=== PATIENT | female | born 1970 | race Caucasian/White ===

== ENCOUNTER → 2017-07-16 16:30 | Outpatient (REF) | payer OTHER, SELFPAY ==
[2017-07-16 19:48] LABS: Amphetamine/Metha Screen,Urine Negative ng/mL (<1000); Barbiturates Screen,Urine Negative ng/mL (<200); Benzodiazepines Screen,Urine Negative ng/mL (200); Cannabinoid Screen,Urine Positive ng/mL (<50); Cocaine Screen,Urine Negative ng/g (<300); Methadone Screen,Urine Negative ng/mL (<300); Opiate Screen,Urine Negative ng/mL (<300); Phencyclidine Screen,Urine Negative ng/mL (<25)
[2017-07-30 13:36] LABS: Opiates Negative (Cutoff=100)
== END ==
LOC: LAB 16:30
PROVIDERS: Visit Provider Nurse Practitioner Family
DX: Z79.899 Other long term (current) drug therapy (principal)
CPT/HCPCS: 80305; 80361; G0480

== ENCOUNTER → 2017-07-19 12:39 | Outpatient (CLI) | payer OTHER, SELFPAY ==
[2017-07-19 13:31] LABS: Basophils % 0.4 % (0.1-2.0); Eosinophils # 0.1 K/mm3 (0.0-0.4); Hematocrit 49.4 % (37.0-47.0); Hemoglobin 16.6 g/dL (12.2-16.2); Lymphocytes # 2.9 K/mm3 (0.7-4.5); Lymphocytes % 37.2 K/mm3 (10-50); Mean Corpuscular HGB Conc 33.6 g/dL (31.8-35.4); Mean Corpuscular Hemoglobin 28.9 pg (27.0-31.2); Mean Corpuscular Volume 86.2 fl (81-99); Mean Platelet Volume 8.4 fl (7.4-10.4); Monocytes # 0.5 K/mm3 (0.1-1.0); Monocytes % 5.8 % (1.7-9.3); Neutrophils # 4.3 K/mm3 (1.8-7.8); Neutrophils % 55.5 % (37.0-80.0); Platelet Count 331 K/mm3 (142-424); Red Blood Count 5.73 M/mm3 (4.20-5.40); Red Cell Distribution Width 13.1 % (11.5-17.5); White Blood Count 7.7 K/mm3 (4.8-10.8)
[2017-07-19 14:11] LABS: Alanine Aminotransferase 19 U/L (12-78); Albumin Level 4.2 gm/dL (3.4-5.0); Albumin/Globulin Ratio 1.3 (1.1-1.8); Alkaline Phosphatase 62 U/L (46-116); Anion Gap 14.2 mEq/L (5-15); Aspartate Amino Transferase 13 U/L (15-37); Bilirubin,Total 0.5 mg/dL (0.2-1.0); Blood Urea Nitrogen 6 mg/dL (7-18); Calcium 9.5 mg/dL (8.5-10.1); Carbon Dioxide 27 mmol/L (21.0-32.0); Chloride 100 mmol/L (98-107); Cholesterol 316 mg/dL (140-200); Creatinine,Serum 0.77 mg/dL (0.55-1.02); Estimated Glomerular Filt Rate 80 ml/min (>60); Free T4 (Free Thyroxine) 1.12 ng/dl (0.76-1.46); GFR (African American) 97 ML/MIN (>60); Globulin 3.2 gm/dl (1.3-3.2); Glucose 80 mg/dL (74-106); HDL Cholesterol 45 mg/dL (29-89); LDL Cholesterol 221 mg/dL (0-130); Potassium 4.2 mmoL/L (3.5-5.1); Sodium 137 mmol/L (136-145); Thyroid Stimulating Hormone 0.99 uIU/ml (0.358-3.740); Total Protein,Serum 7.4 gm/dL (6.4-8.2); Triglycerides 249 mg/dL (30-200); VLDL Cholesterol 50 mg/dL (0-40)
[2017-07-19 14:20] LABS: Hemoglobin A1C 5.6 % (0.0-7.0)
[2017-07-20 09:13] LABS: Vitamin D 25 Hydroxy 21.1 ng/mL (30.0-100.0)
== END ==
PROVIDERS: Nurse Practitioner Family; PCP Emergency Medicine; Visit Provider Emergency Medicine
DX: E03.9 Hypothyroidism, unspecified (principal); F32.9 Major depressive disorder, single episode, unspecified; G43.109 Migraine with aura, not intractable, without status migrainosus
CPT/HCPCS: 36415; 80053; 80061; 82652; 83036; 84439; 84443; 85025

== ENCOUNTER 2017-09-06 15:57 | Emergency (ER) | payer SELFPAY ==
[2017-09-06 15:58] VITALS: BP 127/79; PULSE 78; RESP 20; TEMP 36.6; O2SAT 99; BMI 26.3
--- NOTE | 2017-09-06 16:12 | XR_ITS ---
XR hand LT 2V HISTORY: Posttraumatic pain with bruising and swelling ITS.REASON: wind caught door smashing between door and house ORDERING PHYSICIAN: Miguel Angel Puente MD PATIENT AGE: 46 years COMPARISON: None FINDINGS: No fracture or dislocation. No lytic or blastic change. There is normal mineralization.. The joint spaces are well-preserved. No significant degenerative/arthritic changes. No erosive changes evident.. IMPRESSION: Negative, no acute finding
--- NOTE | 2017-09-06 16:21 | HMH.EDGENADL ---
ED Disposition Clinical Impression: Contusion of hand, left Qualifiers: Encounter type: initial encounter Qualified Code(s): S60.222A - Contusion of left hand, initial encounter Disposition: Home, Self-Care Condition on Discharge: Fair Instructions: DI for Acute Pain -- Adult Prescriptions: Ibuprofen [Ibuprofen 600mg Tab] 600 mg PO Q8H 30 Days #90 tab Referrals: Gonzalo Main MD [Primary Care Provider] - Time of Disposition: 17:06 - Critical Care Critical Care Time: No Attestation: On 09/06/17, the high probability of a clinically significant, sudden or life threatening deterioration of the following system(s) required my full and direct attention, intervention and personal management. The time I documented below is in addition to time spent performing reported procedures but includes the following listed in this critical care notation. Medical Decision Making Vital Signs: 09/06/17 15:58 Temperature 97.8 F Temperature Source Oral Pulse Rate [Right Radial] 78 Respiratory Rate 20 Blood Pressure [Right Arm] 127/79 Blood Pressure Mean [Right Arm] 95 Blood Pressure Source [Right Arm] Automatic Cuff Blood Pressure Position [Right Arm] Sitting 02 Sat by Pulse Oximetry 99 Oxygen Delivery Method Room Air - Radiology Data #1 Image(s): Hand Image Reviewed: Yes I reviewed the patient's radiology results, Yes I reviewed the patient's radiology image, Yes I discussed the image results w/the radiologist, Yes I have reviewed radiologist's interpretation Preliminary Findings: Normal/NAD - Pilo Inquiry Pt receiving controlled substance: No Pilo was queried for this patient: No General Adult HPI - General Chief complaint: PAIN Stated complaint: [id number] injured left hand Time Seen by Provider: 09/06/17 16:22 Mode of Arrival: Ambulatory Limitations: No Limitations Description of Symptoms (Recalled from ER Triage Doc. by RN): wind cought her back door x2 days ago, smashing it between the dooe and house , hematoma with bruising to top of hand - History of Present Illness HPI narrative: pt opened back door to house 2 days ago and the wind caught it and slammed her left hand between the door and the house and now comes to the ED with a large bruise and hematoma on the dorsum of the left hand. - Related Data Home Medications Medication Instructions Recorded Confirmed epinephrine HCl (PF) 1 mg/mL (1 0.5 ml SUBMUCOSAL ONCE PRN 07/16/17 mL) injection solution lurasidone 40 mg tablet 40 mg PO QDAY 07/16/17 [id number]-Vu-igjo-minerals 27 tab PO .once a day each 07/16/17 mg-0.4 mg tablet sumatriptan 50 mg tablet 50 mg PO ONCE PRN 07/16/17 tramadol 50 mg tablet 50 mg PO Q8H tab 07/16/17 trazodone ER 150 mg mg PO .once hs tab 07/16/17 tablet,extended release 24 hr venlafaxine ER 150 mg 150 mg PO ONCE 07/16/17 tablet,extended release 24 hr Previous Rx's Medication Instructions Recorded albuterol sulfate HFA 90 2 puff INHALATION Q6H #6.7 g 07/24/17 mcg/actuation aerosol inhaler montelukast 10 mg tablet 10 mg PO QHS #30 tab 07/24/17 oxybutynin chloride 5 mg tablet 5 mg PO ONCE #30 tab 07/24/17 atorvastatin 10 mg tablet 10 mg PO QDAY #30 tab 08/01/17 ergocalciferol (vitamin D2) 50,000 50,000 unit PO QWEEK #4 cap 08/01/17 unit capsule levothyroxine 100 mcg capsule 100 mcg PO QDAY #30 cap 08/01/17 meloxicam 7.5 mg tablet 7.5 mg PO QDAY #30 tab 08/01/17 tizanidine 4 mg tablet 4 mg PO Q8H #90 tab 08/01/17 Ibuprofen [Ibuprofen 600mg Tab] 600 mg PO Q8H 30 Days #90 tab 09/06/17 Allergies Allergy/AdvReac Type Severity Reaction Status Date / Time codeine Allergy Intermediate Verified 07/16/17 14:26 [facility] History I have reviewed the patient's past medical history: Yes Medical History: Reports:: Seizures Comment: Chronic neck and shoulder pain Other Surgeries: Yes: , Hysterectomy-Partial Amputation: No Fractures: No Comment: x3 - Social History Edu
[2017-09-06 17:11] VITALS: BP 121/75; PULSE 58; RESP 20; TEMP 36.7; O2SAT 98
== END 2017-09-06 17:11 | disposition home or self-care (01) ==
PROVIDERS: Emergency Provider General Practice; Family Provider Family Medicine; PCP Emergency Medicine
DX: S60.222A Contusion of left hand, initial encounter (principal)
CPT/HCPCS: 73120; 99281

== ENCOUNTER → 2017-11-28 11:43 | Outpatient (CLI) | payer OTHER, SELFPAY ==
[2017-11-28 12:05] LABS: Basophils % 0.5 % (0.1-2.0); Eosinophils # 0.1 K/mm3 (0.0-0.4); Eosinophils % 1.5 % (0.1-12.0); Hemoglobin 14.9 g/dL (12.2-16.2); Lymphocytes # 2.4 K/mm3 (0.7-4.5); Lymphocytes % 27.4 K/mm3 (10-50); Mean Corpuscular HGB Conc 31.6 g/dL (31.8-35.4); Mean Corpuscular Hemoglobin 28.1 pg (27.0-31.2); Mean Corpuscular Volume 88.8 fl (81-99); Mean Platelet Volume 7.4 fl (7.4-10.4); Monocytes # 0.4 K/mm3 (0.1-1.0); Monocytes % 4.5 % (1.7-9.3); Neutrophils # 5.8 K/mm3 (1.8-7.8); Neutrophils % 66.1 % (37.0-80.0); Platelet Count 286 K/mm3 (142-424); Red Cell Distribution Width 13.3 % (11.5-17.5); White Blood Count 8.8 K/mm3 (4.8-10.8)
[2017-11-28 13:35] LABS: Alanine Aminotransferase 21 U/L (12-78); Albumin Level 3.7 gm/dL (3.4-5.0); Albumin/Globulin Ratio 1.2 (1.1-1.8); Alkaline Phosphatase 58 U/L (46-116); Anion Gap 10.3 mEq/L (5-15); Aspartate Amino Transferase 12 U/L (15-37); Bilirubin,Total 0.3 mg/dL (0.2-1.0); Blood Urea Nitrogen 10 mg/dL (7-18); Calcium 9.3 mg/dL (8.5-10.1); Carbon Dioxide 30 mmol/L (21.0-32.0); Chloride 104 mmol/L (98-107); Chol/HDL Ratio 5.2 (1-3.5); Cholesterol 209 mg/dL (140-200); Creatinine,Serum 0.82 mg/dL (0.55-1.02); Estimated Glomerular Filt Rate 74 ml/min (>60); GFR (African American) 90 ML/MIN (>60); Globulin 3.1 gm/dl (1.3-3.2); Glucose 102 mg/dL (74-106); HDL Cholesterol 40 mg/dL (29-89); LDL Cholesterol 142 mg/dL (0-130); Potassium 4.3 mmoL/L (3.5-5.1); Sodium 140 mmol/L (136-145); Thyroid Stimulating Hormone 0.34 uIU/ml (0.358-3.740); Total Protein,Serum 6.8 gm/dL (6.4-8.2); Triglycerides 134 mg/dL (30-200); VLDL Cholesterol 27 mg/dL (0-40)
== END ==
PROVIDERS: Visit Provider Nurse Practitioner Psychiatric/Mental Health
DX: F31.81 Bipolar II disorder (principal)
CPT/HCPCS: 36415; 80053; 80061; 84443; 85025

== ENCOUNTER 2018-01-07 11:00 | Outpatient (RCR) | payer OTHER, SELFPAY | END 2018-01-07 11:01 | disposition home or self-care (01) | LOC: OT 11:00 | PROVIDERS: Family Provider Family Medicine; PCP Emergency Medicine; Visit Provider Physician Assistant | DX: R20.0 Anesthesia of skin (principal); R20.2 Paresthesia of skin; M65.4 Radial styloid tenosynovitis [de Quervain] | CPT/HCPCS: 97033; 97110; 97165 ==

== ENCOUNTER → 2018-05-01 13:56 | Outpatient (REF) | payer OTHER, SELFPAY ==
[2018-05-01 14:21] LABS: Basophils % 0.4 % (0.1-2.0); Eosinophils # 0.1 K/mm3 (0.0-0.4); Hematocrit 46.8 % (37.0-47.0); Hemoglobin 15.4 g/dL (12.2-16.2); Lymphocytes # 2.1 K/mm3 (0.7-4.5); Lymphocytes % 30.7 K/mm3 (10-50); Mean Corpuscular Hemoglobin 28.8 pg (27.0-31.2); Mean Corpuscular Volume 87.3 fl (81-99); Mean Platelet Volume 7.8 fl (7.4-10.4); Monocytes # 0.4 K/mm3 (0.1-1.0); Monocytes % 5.4 % (1.7-9.3); Neutrophils # 4.2 K/mm3 (1.8-7.8); Neutrophils % 62.5 % (37.0-80.0); Platelet Count 311 K/mm3 (142-424); Red Blood Count 5.36 M/mm3 (4.20-5.40); Red Cell Distribution Width 13.3 % (11.5-17.5); White Blood Count 6.7 K/mm3 (4.8-10.8)
[2018-05-01 14:55] LABS: Alanine Aminotransferase 20 U/L (12-78); Albumin Level 3.9 gm/dL (3.4-5.0); Albumin/Globulin Ratio 1.2 (1.1-1.8); Alkaline Phosphatase 59 U/L (46-116); Anion Gap 16.1 mEq/L (5-15); Aspartate Amino Transferase 8 U/L (15-37); Bilirubin,Total 0.5 mg/dL (0.2-1.0); Blood Urea Nitrogen 12 mg/dL (7-18); Calcium 9.2 mg/dL (8.5-10.1); Carbon Dioxide 26 mmol/L (21.0-32.0); Chloride 100 mmol/L (98-107); Chol/HDL Ratio 6.9 (1-3.5); Cholesterol 304 mg/dL (140-200); Creatinine,Serum 0.94 mg/dL (0.55-1.02); Estimated Glomerular Filt Rate 64 ml/min (>60); GFR (African American) 77 ML/MIN (>60); Globulin 3.3 gm/dl (1.3-3.2); Glucose 121 mg/dL (74-106); HDL Cholesterol 44 mg/dL (29-89); LDL Cholesterol 228 mg/dL (0-130); Potassium 4.1 mmoL/L (3.5-5.1); Sodium 138 mmol/L (136-145); T4 (Thyroxine) 8.3 ug/dl (4.7-13.3); Thyroid Stimulating Hormone 0.62 uIU/ml (0.358-3.740); Total Protein,Serum 7.2 gm/dL (6.4-8.2); Triglycerides 161 mg/dL (30-200); VLDL Cholesterol 32 mg/dL (0-40)
[2018-05-02 18:08] LABS: Vitamin D 25 Hydroxy 27.7 ng/mL (30.0-100.0)
== END ==
LOC: LAB 13:56
PROVIDERS: PCP Physician Assistant; Visit Provider Physician Assistant
DX: E03.9 Hypothyroidism, unspecified (principal)
CPT/HCPCS: 80053; 80061; 82652; 84436; 84443; 85025

== ENCOUNTER → 2018-12-16 07:23 | Outpatient (CLI) | payer OTHER, SELFPAY ==
--- NOTE | 2018-12-16 07:25 | CA_ITS ---
PROCEDURE: 2-D M-mode and color Doppler study INDICATIONS FOR THE TEST: Chest pain X COPD Heart Murmur Tobacco Smoking PalpitationsX Fatigue Syncope Edema Hypertension Diabetes Mellitus Rheumatic Fever SOB WARREN Obesity HyperlipidemiaX Family History HD Additional History ABN EKG PATIENT INFORMATION HEIGHT: 69 WEIGHT:166 GENDER: Female B/P:147/83 2-D/M-MODE INTERPRETATION: 2-D MEASUREMENTS OBSERVED VALUES IN CMS Right Ventricular Dimension (RVDd) 1.8 Interventricular Septum (Thickness)(IVsd) .8 Left Ventricular Internal Dimensions(LVIDd) 5.5 Left Ventricular Posterior Wall (Thickness)(LVPWd) 1.1 Aortic Root 2.7 Aortic Cusp Separation 1.5 Left Atrial Dimensions (LAD) 2.4 2D 1. Left atrium is normal size, left ventricle is normal size, there is no concentric left ventricular hypertrophy, visually estimated ejection fraction 55% with no regional wall motion abnormality. 2. The right atrium and right ventricle are normal size and contractility. 3. The aortic, mitral and tricuspid valvular grossly normal. 4. The pulmonic valve is poorly present. 5. No significant pericardial effusion noted. DOPPLER INTERROGATION: Doppler interrogation of the aortic, mitral and tricuspid valvular presence of mild mitral and tricuspid regurgitation, tricuspid regurgitation jet velocity is inadequate for calculation of the right ventricular systolic pressure, diastolic parameters are within normal range. CONCLUSION: 1. Normal left ventricular size, visually estimated ejection fraction 55% with no regional wall motion abnormality. Diastolic parameters are within normal range. 2. Mild mitral and tricuspid regurgitation 3. No significant pericardial effusion noted.
--- NOTE | 2018-12-16 07:26 | NM_ITS ---
SPECT MYOCARDIAL PERFUSION SCAN, REST AND STRESS: EXERCISE STRESS: [facility] REVIEW QGS EF AND WALL MOTION EVALUATION: QPS - PERFUSION EVALUATION: HISTORY: chest pain PROCEDURE: Rest imaging performed after administration of10.18 millicuries Tc MIBI. Dose administered at7:30 a.m., with imaging thereafter. Stress imaging was then performed following7 minutes 30 seconds of exercise stress. The patient achieved a heart [id number] with projected heart rate of145 . Resting BP112/64 with stress 160/64. At maximum exercise stress,31.0 millicuries Tc MIBI administered at9:10 a.m. with [id number] minutes thereafter. FINDINGS: Perfusion Evaluation: The single slice spect images as well as the [facility] bull's-eye data summary were reviewed. Wall Motion and Ejection Fraction Evaluation: Gated SPECT review and analysis used to evaluate these features. There is a 55 % left ventricular ejection fraction. There seems to be good wall motion Stress images reveal decreased activity in the anterior apical wall while rest images reveal improved activity. Patient did experience exercise-induced EKG abnormalities. IMPRESSION: Anterior apical reversible ischemia with normal ejection fraction normal wall motion
--- NOTE | 2018-12-16 09:48 | HMH.ITSHM ---
Current Home Medications as stated by this patient Bita Ball or reimbursement representative. [] trazadone lipitor buspirone latuda levothyroxine tizanidine effexor linzess meloxicam montelukast oxybutynin imitrex
== END ==
PROVIDERS: PCP Physician Assistant; Visit Provider Physician Assistant
DX: R07.9 Chest pain, unspecified (principal); E78.5 Hyperlipidemia, unspecified; I10 Essential (primary) hypertension; R00.2 Palpitations; F17.200 Nicotine dependence, unspecified, uncomplicated
CPT/HCPCS: 78452; 93017; 93306; A9502

== ENCOUNTER → 2019-08-12 13:38 | Outpatient (CLI) | payer OTHER, SELFPAY ==
[2019-08-12 14:50] LABS: Basophils % 0.8 % (0.1-2.0); Eosinophils # 0.1 K/mm3 (0.0-0.4); Eosinophils % 2.8 % (0.1-12.0); Hematocrit 43.8 % (37.0-47.0); Hemoglobin 14.7 g/dL (12.2-16.2); Lymphocytes # 2.7 K/mm3 (0.7-4.5); Lymphocytes % 55.3 % (10-50); Mean Corpuscular HGB Conc 33.4 g/dL (31.8-35.4); Mean Corpuscular Volume 83.8 fl (81-99); Monocytes # 0.3 K/mm3 (0.1-1.0); Monocytes % 5.2 % (1.7-9.3); Neutrophils # 1.7 K/mm3 (1.8-7.8); Neutrophils % 35.9 % (37.0-80.0); Platelet Count 269 K/mm3 (142-424); Red Blood Count 5.23 M/mm3 (4.20-5.40); Red Cell Distribution Width 13.1 % (11.5-17.5); White Blood Count 4.8 K/mm3 (4.8-10.8)
[2019-08-12 15:09] LABS: MANUAL DIFFERENTIAL MANUAL DIFFERENTIAL (MANUAL DIFF)
[2019-08-12 15:45] LABS: Eosinophils % 3 % (0-3); Lymphocytes % 53 % (10-50); Monocytes % 6 % (2-9); Neutrophils % 34 % (42-76); Total Cells Counted 100
[2019-08-12 15:46] LABS: Platelet Estimate Normal; RBC Morphology Normal
[2019-08-12 15:55] LABS: Alanine Aminotransferase 25 U/L (12-78); Albumin Level 3.6 gm/dL (3.4-5.0); Albumin/Globulin Ratio 1.2 (1.1-1.8); Alkaline Phosphatase 67 U/L (46-116); Anion Gap 9.6 mEq/L (5-15); Aspartate Amino Transferase 13 U/L (15-37); Bilirubin,Total 0.3 mg/dL (0.2-1.0); Blood Urea Nitrogen 10 mg/dL (7-18); Calcium 8.9 mg/dL (8.5-10.1); Carbon Dioxide 32 mmol/L (21.0-32.0); Chloride 100 mmol/L (98-107); Chol/HDL Ratio 3.6 (1-3.5); Cholesterol 178 mg/dL (140-200); Creatinine,Serum 0.61 mg/dL (0.55-1.02); Estimated Glomerular Filt Rate 104 ml/min (>60); Free Thyroxine Index 3.7 ug/dL (5.93-13.13); GFR (African American) 126 ML/MIN (>60); Globulin 2.9 gm/dl (1.3-3.2); Glucose 89 mg/dL (74-106); HDL Cholesterol 50 mg/dL (29-89); LDL Cholesterol 109 mg/dL (0-130); Potassium 4.6 mmoL/L (3.5-5.1); Sodium 137 mmol/L (136-145); T4 (Thyroxine) 11.1 ug/dl (4.7-13.3); Thyroid Stimulating Hormone 0.02 uIU/ml (0.358-3.740); Total Protein,Serum 6.5 gm/dL (6.4-8.2); Triglycerides 93 mg/dL (30-200); Triiodothryronine (T3) Uptake 33 % (31-39); VLDL Cholesterol 19 mg/dL (0-40)
== END ==
PROVIDERS: Visit Provider Nurse Practitioner Psychiatric/Mental Health
DX: F31.81 Bipolar II disorder (principal)
CPT/HCPCS: 36415; 80053; 80061; 84436; 84443; 84479; 85007; 85025

== ENCOUNTER → 2020-02-26 16:06 | Outpatient (CLI) | payer OTHER, SELFPAY ==
[2020-02-26 17:45] LABS: Thyroid Stimulating Hormone 1.74 uIU/mL (0.465-4.68)
== END ==
PROVIDERS: Visit Provider Physician Assistant
DX: E03.9 Hypothyroidism, unspecified (principal)
CPT/HCPCS: 36415; 84436; 84443

== ENCOUNTER 2020-06-10 13:52 | Emergency (ER) | payer OTHER, SELFPAY ==
[2020-06-10 14:11] VITALS: BP 133/82; PULSE 91; RESP 20; TEMP 37; O2SAT 99; BMI 28.8
[2020-06-10 14:25] LABS: UTC Influenza A Antigen Negative (Negative)
[2020-06-10 14:26] LABS: UTC Influenza B Antigen Negative (Negative)
--- NOTE | 2020-06-10 14:30 | HMH.EDUTC ---
[facility] [place] Clinical Impression: Bronchitis, Exposure to COVID-19 virus, Viral syndrome Disposition: Home, Self-Care Condition on Discharge: Good Instructions: Preventing the Spread of Coronavirus Discharge Instructions Additional Instructions: Drink plenty of fluids. Take tylenol for pain or fever. Return if you begin to have difficulty breathing. Follow up with your regular doctor. GO TO THE ER FOR ANY WORSENING SYMPTOMS Prescriptions: Ondansetron [Zofran 4mg ODT] 4 mg PO Q8HP PRN #12 tab.rapdis PRN Reason: Nausea Transmission Status: Received by [facility] Benzonatate [Tessalon Perle 100mg Cap] 100 mg PO TIDP PRN #30 cap PRN Reason: Cough Transmission Status: Received by [facility] Azithromycin [Z-Angel Luis 250mg Tab*] 250 mg PO UD DOSE PK #6 tab Transmission Status: Received by [facility] Referrals: Sheri Campbell PA [Primary Care Provider] - Time of Disposition: 14:32 Medical Decision Making - Medical Records Medical records reviewed: No: I reviewed the patient's medical records. - Pilo Inquiry Pt receiving controlled substance: No Vital Signs: 06/10/20 14:11 06/10/20 14:57 Temperature 98.6 F 98.6 F Temperature Source Oral Oral Pulse Rate 91 H Pulse Rate [Radial] 91 H Respiratory Rate 20 20 Blood Pressure 133/82 Blood Pressure [Right Arm] 133/82 Blood Pressure Mean [Right Arm] 99 Blood Pressure Source Automatic Cuff Blood Pressure Source [Right Arm] Automatic Cuff Blood Pressure Position Sitting Blood Pressure Position [Right Arm] Sitting 02 Sat by Pulse Oximetry 99 Oxygen Delivery Method Room Air Room Air - Lab Data Lab Results 06/10/20 14:03: Influenza Type A Ag Negative, Influenza Type B Ag Negative [facility] [place] - General Stated complaint: covid test Time Seen by Provider: 06/10/20 14:30 Mode of Arrival: Ambulatory Source of Information: Patient Limitations: No Limitations Description of Symptoms (Recalled from Triage Doc. by RN): Diarrhea, body aches, congestion, SOB x 3 days HEENT Symptoms (Recalled from RN notes): Yes Resp Symptoms (Recalled from RN notes): No Skin Symptoms (Recalled from RN notes): No MS Symptoms (Recalled from RN notes): No Functional Status (Recalled from RN notes): wnl - History of Present Illness Provider Complaint: She c/o Diarrhea, body aches, congestion, SOB x 3 days. She denies any known exposure to covid 19. - Related Data Home Medications Medication Instructions Recorded Confirmed epinephrine HCl (PF) 1 mg/mL (1 0.5 ml SUBMUCOSAL ONCE PRN 07/16/17 05/26/20 mL) injection solution trazodone 150 mg tablet,extended mg PO .once hs tab 07/16/17 05/26/20 release 24 hr venlafaxine 150 mg tablet,extended 150 mg PO ONCE 07/16/17 05/26/20 release 24 hr aripiprazole 5 mg tablet 5 mg PO DAILY 02/16/20 05/26/20 Previous Rx's Medication Instructions Recorded albuterol sulfate 90 mcg/actuation 2 puff INHALATION Q6H #6.7 g 07/24/17 aerosol inhaler oxybutynin chloride 5 mg tablet 5 mg PO ONCE #30 tab 07/24/17 isosorbide mononitrate 30 mg 30 mg PO DAILY #30 tab 10/21/19 tablet,extended release 24 hr linaclotide 145 mcg capsule See Rx Instructions .ROUTE 01/01/20 .COMPLEX #90 cap sumatriptan succinate 50 mg tablet 50 mg PO ONCE PRN #9 tab 02/16/20 tizanidine 4 mg tablet See Rx Instructions .ROUTE 02/16/20 .COMPLEX #90 tab atorvastatin 20 mg tablet See Rx Instructions .ROUTE 04/06/20 .COMPLEX #30 tab levothyroxine 100 mcg tablet See Rx Instructions .ROUTE 04/06/20 .COMPLEX #30 tab clotrimazole 1 % topical cream 1 applic TOPICAL BID 28 Days #28 g 05/26/20 omeprazole 40 mg capsule,delayed 40 mg PO DAILY 90 Days #90 cap 05/26/20 release meloxicam 7.5 mg tablet See Rx Instructions .ROUTE 05/31/20 .COMPLEX #30 tablet Azithromycin [Z-Angel Luis 250mg Tab*] 250 mg PO UD DOSE PK #6 tab 06/10/20 Benzonatate [Tessalon Perle 100mg 100 mg PO TIDP P
[2020-06-10 14:57] VITALS: BP 133/82; PULSE 91; RESP 20; TEMP 37; O2SAT 99
== END 2020-06-10 14:58 | disposition home or self-care (01) ==
PROVIDERS: Emergency Provider Nurse Practitioner Family; PCP Physician Assistant
DX: U07.1 COVID-19 (principal); E78.5 Hyperlipidemia, unspecified; F41.8 Other specified anxiety disorders; K21.9 Gastro-esophageal reflux disease without esophagitis; F17.210 Nicotine dependence, cigarettes, uncomplicated; Z79.899 Other long term (current) drug therapy; Z88.2 Allergy status to sulfonamides; Z88.0 Allergy status to penicillin; Z88.5 Allergy status to narcotic agent
CPT/HCPCS: 87804; 99201; U0003

== ENCOUNTER → 2020-07-12 10:42 | Outpatient (CLI) | payer OTHER, SELFPAY ==
--- NOTE | 2020-07-12 10:43 | MM_ITS ---
PROCEDURE: MM DIG SCREENING MAMM BI W/CAD Digital Breast Tomosynthesis Included CLINICAL INDICATION: Breast cancer screening There is a history of breast cancer in the patient's maternal grandmother and maternal great grandmother and in the patient's mother COMPARISON: MG MAMMO DIAGNOSTIC DIGITAL BILAT from 09/10/2014 MG MAMMO ADDITIONAL VIEWS LT from 09/27/2014 MG MAMMO ADDITIONAL VIEWS RT from 09/27/2014 TECHNIQUE: Standard CC and MLO images and 3D Tomosynthesis was obtained. R2 CAD reviewed. FINDINGS: Mild scattered fibroglandular densities are seen throughout both breast. There has been interval fatty replacement of the breast parenchyma when compared to the previous studies. There are couple of benign-appearing microcalcifications in each breast. There is no suspicious lesion and no suspicious microcalcifications. IMPRESSION: Fibrofatty parenchyma with no suspicious lesions seen BI-RAD Category: 2 Benign Finding(s) FOLLOW-UP: 1YR 1 Year Follow-up (A letter has been sent to the patient regarding results of the study.) Dictated by: Dr. Channing Edouard MD 07/30/2020 09:43 Dr. Channing Edouard MD in [place] 07/30/2020 09:43
== END ==
PROVIDERS: PCP Physician Assistant; Visit Provider Physician Assistant
DX: Z12.31 Encounter for screening mammogram for malignant neoplasm of breast (principal)
CPT/HCPCS: 77063; 77067

== ENCOUNTER 2021-03-23 13:36 | Emergency (ER) | payer OTHER, SELFPAY ==
[2021-03-23 13:52] VITALS: BP 151/85; PULSE 103; RESP 18; TEMP 36.7; O2SAT 97; BMI 29.5
--- NOTE | 2021-03-23 13:53 | XR_ITS ---
PROCEDURE: XR FOOT RT MIN 3V CLINICAL INDICATION: pain COMPARISON: No exams were available for comparison FINDINGS: No fracture or dislocation. No lytic or blastic change. There is normal mineralization. The joint spaces are well-preserved. No significant degenerative/arthritic changes. No erosive changes evident. Other findings:None. IMPRESSION: No acute findings. Dictated by: Josué Antunez MD 03/23/2021 14:26 Josué Antunez MD in [place] 03/23/2021 14:26
--- NOTE | 2021-03-23 13:53 | XR_ITS ---
PROCEDURE: XR ANKLE RT MIN 3V CLINICAL INDICATION: pain COMPARISON: No exams were available for comparison FINDINGS: No fracture or dislocation. No lytic or blastic change. There is normal mineralization. The joint spaces are well-preserved. No significant degenerative/arthritic changes. No erosive changes evident. Other findings:None. IMPRESSION: No acute findings. Dictated by: Josué Antunez MD 03/23/2021 14:27 Josué Antunez MD in [place] 03/23/2021 14:27
--- NOTE | 2021-03-23 14:17 | HMH.EDUTC ---
[facility] – [place] Disposition Clinical Impression: Ankle sprain Qualifiers: Encounter type: initial encounter Involved ligament of ankle: other ligament Laterality: right Qualified Code(s): S93.491A - Sprain of other ligament of right ankle, initial encounter Foot sprain Qualifiers: Encounter type: initial encounter Laterality: right Qualified Code(s): S93.601A - Unspecified sprain of right foot, initial encounter Disposition: Home, Self-Care Condition on Discharge: Good Instructions: Ankle Sprain, DI for Ankle Sprain, How To Perform RICE (Rest, Ice, Compress, Elevate), DI for Foot Sprain Additional Instructions: *weight bearing as tolerated *RICE, Rest the extremity, Ice 15-20 minutes 3-4 times daily, Compress- wear the davi wrap as discussed as much as possible to help reduce swelling and pain, Elevate the extremity when at rest *Davi wrap/walking boot is for support and help control swelling, use it except in the shower. Be sure that is not to tight but not to loose either *Elevate when resting *Over the Counter Ibuprofen every 6-8 hours as needed for pain an inflammation. If need something more can take Tylenol in between doses of Ibuprofen to help Immediately follow up with your family doctor for new or worsening of symptoms, or no noticeable improvement over the next 3-5 days Follow up with Podiatry if pain continues Follow up with your Family Doctor if no improvement or any worsening of symptoms Return if needed Straight to ER if any life threatening symptoms Referrals: Sheri Campbell PA [Primary Care Provider] - As needed Kristy Woodson DPM [Staff Physician] - Rosalind Whitmore APRN [Nurse Practitioner] - Time of Disposition: 14:35 Medical Decision Making - Pilo Inquiry Pt receiving controlled substance: No Pilo was queried for this patient: No Vital Signs: 03/23/21 13:52 Temperature 98.1 F Temperature Source Oral Pulse Rate [Left] 103 H Respiratory Rate 18 Blood Pressure [Right Arm] 151/85 H Blood Pressure Mean [Right Arm] 107 02 Sat by Pulse Oximetry 97 - Lab Data Lab results reviewed: Yes: I reviewed the patient's lab results. Lab Results 03/23/21 14:43: Uric Acid 4.4 - Radiology Data #1 Image(s): Ankle Image Reviewed: Yes I have reviewed radiologist's interpretation No acute findings. #2 Image(s): Foot/Toes Image Reviewed: Yes I have reviewed radiologist's interpretation No acute findings Medical Decision Narrative: Prior to discharge patient asked if she has ever had Gout and she advised she has discussed with patient that recommended blood work to check uric for gout and she agreed Uric acid within normal limits will place in boot crutches and have patient follow up if no improvement [facility] – [place] HPI - General Stated complaint: right ankle and foot pain Time Seen by Provider: 03/23/21 14:17 Mode of Arrival: Ambulatory Source of Information: Patient Limitations: No Limitations Description of Symptoms (Recalled from Triage Doc. by RN): pt c/o L foot and ankle pain. ongoing x3 days. no injury noted. HEENT Symptoms (Recalled from RN notes): No Resp Symptoms (Recalled from RN notes): No Skin Symptoms (Recalled from RN notes): No MS Symptoms (Recalled from RN notes): Yes (L foot and ankle pain) Functional Status (Recalled from RN notes): na - History of Present Illness Provider Complaint: Patient states that she walked her dog a few days ago and when she got back she was having pain in her foot and ankle States that the next day it was feeling better so she went to walk her dog and she rolled her ankle as she was stepping off the sidewalk and she has been having pain and swelling ever since States that she put it in acewrap and has been putting ice on it but today she was still having pain so she came in - Related Data Home Medications Medication Instructions Recorded Confirmed epinephrine HCl (PF) 1 mg/mL (1 0.5 ml SUBMUCOSAL ONCE PRN 07/16/17 07/12/20 mL) injection solut
[2021-03-23 14:58] LABS: Uric Acid 4.4 mg/dl (2.5-6.2)
[2021-03-23 15:16] VITALS: BP 151/85; PULSE 103; RESP 18; TEMP 36.6
== END 2021-03-23 15:16 | disposition home or self-care (01) ==
PROVIDERS: Emergency Provider Nurse Practitioner; PCP Physician Assistant
DX: S93.491A Sprain of other ligament of right ankle, initial encounter (principal); S93.601A Unspecified sprain of right foot, initial encounter; M25.571 Pain in right ankle and joints of right foot; W10.1XXA Fall (on)(from) sidewalk curb, initial encounter
CPT/HCPCS: 29515; 73610; 73630; 84550; 99202; G0463

== ENCOUNTER → 2021-05-01 11:02 | Outpatient (CLI) | payer OTHER, SELFPAY ==
--- NOTE | 2021-05-01 11:02 | MR_ITS ---
PROCEDURE INFORMATION: Exam: MR Right Lower Extremity Joint Without Contrast; Ankle Exam date and time: 05/01/2021 11:02 AM Age: 50 years old Clinical indication: Pain; Ankle; Left; Additional info: Right ankle pain. Ankle and foot pain on lateral side. Symptoms [id number]. No injury or trauma. Swelling. Prior x-ray 03-23-21 TECHNIQUE: Imaging protocol: MR of the Right lower extremity without contrast. Exam focused on the ankle. COMPARISON: 1. CR XR ANKLE RT MIN 3V 03/23/2021 1:54 PM 2. CR XR FOOT RT MIN 3V 03/23/2021 1:55 PM FINDINGS: Bones and cartilage: There is no acute fracture or dislocation. No aggressive bone lesions are present. Joint spaces: A mild effusion involves the ankle joint. LIGAMENTS: Distal tibiofibular syndesmosis: Unremarkable. No tear. Anterior talofibular ligament: Unremarkable. No tear. Posterior talofibular ligament: Unremarkable. No tear. Calcaneofibular ligament: Unremarkable. No tear. Deltoid ligament complex: Unremarkable. No tear. TENDONS: Flexor tendons of foot: Unremarkable as visualized. Tibialis posterior tendon: Unremarkable as visualized. Peroneal tendons: Moderate tenosynovitis involves the peroneal tendon sheath. Extensor tendons of foot: Unremarkable as visualized. Tibialis anterior tendon: Unremarkable. Achilles tendon: There is no tear or significant tendinosis involving the Achilles tendon. Tarsal canal (Sinus tarsi): Unremarkable. Normal signal of the fat. Tarsal tunnel: Unremarkable. Muscles: Unremarkable. Soft tissues: No suspicious mass. Plantar fascia: There is no mass or significant fasciitis (fasciopathy) involving the plantar fascia. IMPRESSION: Moderate tenosynovitis of the peroneal tendons.
--- NOTE | 2021-05-01 11:10 | XR_ITS ---
PROCEDURE: XR ORBIT BILATERAL MIN 4V CLINICAL INDICATION: RULE OUT METAL FOREIGN BODY FOR MRI COMPARISON: CT HDWO CT HEAD W/O CONTRAST from 09/03/2015 FINDINGS: No metallic material is identified in either orbit. The sinuses are clear. There is cervical spondylosis. IMPRESSION: No metallic material identified in either orbit. Dictated by: Mary Alcala 05/01/2021 11:28 Mary Alcala in [place] 05/01/2021 11:28
== END ==
PROVIDERS: PCP Physician Assistant; Visit Provider Physician Assistant
DX: M25.571 Pain in right ankle and joints of right foot (principal); H05.53 Retained (old) foreign body following penetrating wound of bilateral orbits
CPT/HCPCS: 70200; 73721

== ENCOUNTER → 2021-09-21 10:19 | Outpatient (CLI) | payer OTHER, SELFPAY ==
[2021-09-21 17:53] LABS: Basophils # 0.2 K/mm3 (0-0.2); Eosinophils # 0.1 K/mm3 (0.0-0.4); Eosinophils % 1.4 % (0.1-12.0); Hemoglobin 14.6 g/dL (12.2-16.2); Lymphocytes # 2.7 K/mm3 (0.7-4.5); Lymphocytes % 39.9 % (10-50); Mean Corpuscular HGB Conc 32.4 g/dL (31.8-35.4); Mean Corpuscular Hemoglobin 27.5 pg (27.0-31.2); Mean Corpuscular Volume 84.9 fl (81-99); Mean Platelet Volume 8.6 fl (7.4-10.4); Monocytes # 0.4 K/mm3 (0.1-1.0); Neutrophils # 3.4 K/mm3 (1.8-7.8); Neutrophils % 49.8 % (37.0-80.0); Platelet Count 355 K/mm3 (142-424); White Blood Count 6.8 K/mm3 (4.8-10.8)
[2021-09-21 18:00] LABS: Alanine Aminotransferase 22 U/L (12-78); Albumin Level 4.3 g/dl (3.5-5.0); Albumin/Globulin Ratio 1.7 (1.1-1.8); Alkaline Phosphatase 58 U/L (38-126); Anion Gap 11.9 mEq/L (5-15); Aspartate Amino Transferase 23 U/L (14-36); Bilirubin,Total 0.9 mg/dl (0.2-1.3); Blood Urea Nitrogen 15 mg/dl (7-17); Calcium 9.2 mg/dl (8.4-10.2); Carbon Dioxide 26 mmol/L (22.0-30.0); Chloride 106 mmol/L (98-107); Chol/HDL Ratio 4.5 (1-3.5); Cholesterol 196 mg/dl (140-200); Estimated Glomerular Filt Rate 76 ml/min (>60); GFR (African American) 92 ML/MIN (>60); Globulin 2.5 g/dL (1.3-3.2); Glucose 136 mg/dl (74-100); HDL Cholesterol 44 mg/dl (40-60); Potassium 3.9 mmoL/L (3.5-5.1); Sodium 140 mmol/L (136-145); Total Protein,Serum 6.8 g/dl (6.3-8.2); Triglycerides 201 mg/dl (30-150); VLDL Cholesterol 40 mg/dL (0-40)
[2021-09-21 18:11] LABS: Direct LDL Cholesterol 112.63 mg/dL (100-129)
[2021-09-21 18:16] LABS: 25-OH Vitamin D, Total 35.2 ng/mL (30-100)
[2021-09-21 18:31] LABS: Thyroid Stimulating Hormone 2.41 uIU/mL (0.465-4.68)
[2021-09-21 18:49] LABS: Vitamin B12 522 pg/mL (239-931)
== END ==
PROVIDERS: Visit Provider Physician Assistant
DX: G43.909 Migraine, unspecified, not intractable, without status migrainosus (principal); M25.532 Pain in left wrist; M25.531 Pain in right wrist; F17.210 Nicotine dependence, cigarettes, uncomplicated
CPT/HCPCS: 80053; 80061; 82306; 82607; 84443; 85025

== ENCOUNTER → 2021-11-02 12:04 | Outpatient (CLI) | payer OTHER, SELFPAY ==
[2021-11-02 13:15] LABS: Basophils # 0.1 K/mm3 (0-0.2); Basophils % 0.8 % (0.1-2.0); Eosinophils # 0.1 K/mm3 (0.0-0.4); Eosinophils % 1.3 % (0.1-12.0); Hematocrit 43.4 % (37.0-47.0); Hemoglobin 14.4 g/dL (12.2-16.2); Lymphocytes # 2.1 K/mm3 (0.7-4.5); Lymphocytes % 36.8 % (10-50); Mean Corpuscular HGB Conc 33.1 g/dL (31.8-35.4); Mean Corpuscular Volume 84.6 fl (81-99); Mean Platelet Volume 7.8 fl (7.4-10.4); Monocytes # 0.3 K/mm3 (0.1-1.0); Monocytes % 5.9 % (1.7-9.3); Neutrophils # 3.1 K/mm3 (1.8-7.8); Neutrophils % 55.2 % (37.0-80.0); Platelet Count 334 K/mm3 (142-424); Red Blood Count 5.13 M/mm3 (4.20-5.40); Red Cell Distribution Width 13.3 % (11.5-17.5); White Blood Count 5.6 K/mm3 (4.8-10.8)
[2021-11-02 13:56] LABS: Erythrocyte Sedimentation Rate 29 mm/hr (0-30)
[2021-11-02 13:59] LABS: Uric Acid 3.6 mg/dl (2.5-6.2)
[2021-11-02 14:03] LABS: C-Reactive Protein 27.9 mg/L (0-4)
[2021-11-02 16:36] LABS: Activated Partial Thrombo Time 26.6 seconds (22.8-30.6)
[2021-11-03 13:43] LABS: RA Latex Turbid. <10.0 IU/mL (<14.0)
[2021-11-04 07:17] LABS: Antinuclear Antibodies, IFA Negative (.)
[2021-11-08 14:23] LABS: HLA-B27 Positive (.)
== END ==
PROVIDERS: Visit Provider Physician Assistant Medical
DX: M25.50 Pain in unspecified joint (principal)
CPT/HCPCS: 36415; 84550; 85025; 85651; 85730; 86038; 86140; 86431; 86618; 86812

== ENCOUNTER → 2021-11-03 15:21 | Outpatient (CLI) | payer OTHER, SELFPAY ==
--- NOTE | 2021-11-03 15:25 | MR_ITS ---
FINAL REPORT CLINICAL HISTORY: CERVICALGIA. neck pain. lt arm pain and numbness. symptoms x20yrs. no recent injury or trauma. pt had a hard time staying still. FINDINGS: Multi planar MR imaging was obtained of the cervical spine. There is abnormal decreased signal throughout the cervical discs. 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 The vertebrae are of normal height. There is no malalignment. The cervical cord demonstrates normal signal and configuration. C3-C4: There is a midline and right protrusion. There is asymmetric right facet hypertrophy with high-grade right neural foraminal narrowing. C4-C5: There is prominence of the posterior longitudinal ligaments. C5-C6: There is prominence of the posterior longitudinal ligament. C6-C7: There is prominence of the posterior longitudinal ligament. C7-T1: There is prominence of the posterior longitudinal ligament. 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 Asymmetric facet hypertrophy on the right at C3-4 with disc protrusion and high-grade right neural foraminal narrowing. Reviewed, Interpreted and Dictated by Felix Ling MD Transcribed by Daniela Treviño Authenticated by Felix Ling MD on 11/03/2021 04:51:30 PM [facility]
== END ==
PROVIDERS: PCP Physician Assistant; Visit Provider Orthopaedic Surgery
DX: M54.2 Cervicalgia (principal)
CPT/HCPCS: 72141; 76376